=== PATIENT | male | born 1945 | race Caucasian/White ===

== ENCOUNTER → 2016-10-09 | Outpatient (CLI) | payer MEDICARE, SELFPAY ==
[~2016-10-09] MED LIST: ALDACTONE25 MG PO; ASPIR-TRIN325 MG PO; COLACE100 MG PO; COZAAR50 MG PO; ELIQUIS2.5 MG PO; FLOMAX 0.4 MG0.4 MG PO; GLYBURIDE2.5 MG PO; HYDROCHLOROTHIA25 MG PO; MULTI-DAY VITA1 EACH PO; NORCO 10-325 T1 EACH PO; NORVASC 5 MG TAB5 MG PO; PAXIL20 MG PO; TOPROL XL 50 MG50 MG PO; VITAMIN B12-FO1 EACH PO
== END ==
LOC: HEART 5 10:36
DX: R07.9 Chest pain, unspecified (principal)
CPT/HCPCS: 93306

== ENCOUNTER → 2016-10-16 | Outpatient (CLI) | payer MEDICARE, SELFPAY | LOC: HEART 5 07:49 | DX: R07.9 Chest pain, unspecified (principal) | CPT/HCPCS: 78452; A9502; J2785 ==